=== PATIENT | male | born 1975 | race Caucasian/White ===

== ENCOUNTER 2017-12-31 08:00 | Outpatient (CLI) | payer BC, OTHER ==
[2017-12-31 19:24] LABS: ALBUMIN 4.9 g/dL (3.2-5.5); ALBUMIN/GLOBULIN RATIO 1.5 (1.0-2.2); ALKALINE PHOSPHATASE 78 IU/L (42-121); ALT ALANINE AMINOTRANSFERASE 42 IU/L (10-60); AST ASPARTATE AMINOTRANSFERASE 27 IU/L (10-42); BILIRUBIN,TOTAL 0.8 mg/dL (0.2-1.0); BUN - BLOOD UREA NITROGEN 13 mg/dL (6-20); CALCIUM 9.7 mg/dL (8.5-10.3); CARBON DIOXIDE - CO2 28 mmol/L (21-32); CHLORIDE 100 mmol/L (101-111); CHOL/HDL RATIO 4.5 (<5.0); CHOLESTEROL 195 mg/dL; GFR - MDRD 81 (>89); GLUCOSE 79 mg/dL (70-100); HDL CHOLESTEROL 43 mg/dL; LDL CHOLESTEROL,CALCULATED 91 mg/dL; LDL/HDL RATIO 2.1 (<3.6); SODIUM 137 mmol/L (135-145); TOTAL PROTEIN 8.2 g/dL (6.7-8.2); URIC ACID 9.5 mg/dL (2.6-7.2); VLDL CHOLESTEROL 61 mg/dL
== END 2017-12-31 08:01 | disposition home or self-care (01) ==
LOC: LAB.R 08:00
PROVIDERS: ATTEND Family Medicine
DX: R74.8 Abnormal levels of other serum enzymes (principal); M10.9 Gout, unspecified; E78.5 Hyperlipidemia, unspecified
CPT/HCPCS: 80053; 80061; 83721; 84443; 84550

== ENCOUNTER 2021-12-06 16:37 | Outpatient (CLI) | payer SELFPAY | END 2021-12-06 16:38 | disposition EMS.NT | LOC: EMS 16:37 | DX: R56.9 Unspecified convulsions (principal) ==

== ENCOUNTER 2022-02-08 20:04 | Outpatient (CLI) | payer SELFPAY | END 2022-02-08 20:05 | disposition EMS.NT | LOC: EMS 20:04 | DX: R04.0 Epistaxis (principal) ==

== ENCOUNTER 2022-04-10 17:59 | Outpatient (CLI) | payer BC | END 2022-04-10 18:00 | disposition short-term general hospital (02) | LOC: EMS 17:59 | DX: R56.9 Unspecified convulsions (principal) | CPT/HCPCS: A0425; A0429 ==